=== PATIENT | female | born 1970 | race Caucasian/White ===

== ENCOUNTER 2017-04-10 18:16 | Emergency (ER) | payer SELFPAY ==
[2017-04-10 18:36] VITALS: BP 135/90
--- NOTE | 2017-04-10 18:50 | Diagnostic Imaging Report ---
[facility] [address] [facility].[address] [address] Report Submission Date: April 10, 2017 6:49:06 PM CDT Patient Study Name: MYKEL MALLORY Date: April 10, 2017 6:29:21 PM CDT Modality Type: CR Gender: F Description: ABDOMEN : 68 Institution: [facility] Physician: CHICO LEAVITT (SOFTWARE DEVELOPMENT SPECIALIST) - ER Abdominal series History: Left lower quadrant pain and nausea Findings: Upright and supine abdominal radiographs reveal obesity, cholecystectomy, and normal bowel gas pattern without obstruction, free air, or abnormal calcifications. Gastric rugal fold thickening is noted. Impression: 1. Gastric rugal fold thickening suggests gastritis. 2. Normal bowel gas pattern. 3. Cholecystectomy. Electronically signed on April 10, 2017 6:49:06 PM CDT by: Austen DORMAN
== END 2017-04-10 18:50 | disposition left against medical advice (07) ==
LOC: ED 18:16
DX: R10.9 Unspecified abdominal pain (principal)
CPT/HCPCS: 74020; 99281

== ENCOUNTER 2019-04-07 16:59 | Emergency (ER) | payer OTHER ==
--- NOTE | 2019-04-07 17:34 | ED Physician Documentation ---
Abdominal Pain - HISTORIAN Historian: patient - HPI Stated Complaint: abd pain Chief Complaint: Abdominal Pain Additonal Information: Patient presents to ED with a 1 day history of rectal bleeding and left lower abdominal pain. Patient states she has had this in the past and sees a colorectal surgeon (Dr. Cuco Mcclelland) in for it. Last year she had a colonscopy showing rectal ulcer and proctitis. She was started on antibiotics and steroids with resolution of the problem. Today she woke up with the same symptoms. Denies fever. Patient has a history of iron deficient anemia and get IV iron infusions. Patient states she has an appointment with her colorectal surgeon next week. Patient reports last IV iron infusion was over a year ago. Last blood transfusion was last month for a hemoglobin of 7.2 Onset: hours (12) Duration: gradual Timing: still present Context: denies: out of country travel Severity: mild Quality: aching, cramping, sharp, stabbing Associated Symptoms: nausea, bloody stools. denies: fever Exacerbated by: nothing - ROS CONST: no problems GI/: bloody stools CVS/RESP: none EYES/ENT: none MS/SKIN/LYMPH: none NEURO/PSYCH: none - SOCIAL HX Smoking History: non-smoker Alcohol Use: none Drug Use: none - FAMILY HX Family History: none - PAST HX Past History: none Ischemic Bowel Risk Factors: none Surgeries/Procedures: appendectomy, cholecystectomy, hysterectomy Home Medications: Ambulatory Orders Medication Instructions Recorded Alprazolam [Alprazolam ER] 2 mg PO D 12/30/14 Duloxetine HCl [Cymbalta] 120 mg PO HS 12/30/14 Lansoprazole [Prevacid] 30 mg PO BID 12/30/14 Simvastatin [Zocor] 40 mg PO D 12/30/14 Dicyclomine HCl [Bentyl] 40 mg PO QID 04/10/17 Mirtazapine [Remeron] 15 mg PO HS 04/10/17 Ciprofloxacin HCl [Cipro] 500 mg PO BID #28 tablet 04/07/19 Hydrocodone/Acetaminophen [[place] 1 each PO Q6 PRN #12 tablet 04/07/19 5-325 Tablet] Methylprednisolone [Medrol] 4 mg PO DIRECTED #1 tab.ds.pk 04/07/19 Tramadol HCl [Ultram] 50 mg PO Q4 PRN 04/07/19 metroNIDAZOLE [Flagyl] 500 mg PO Q8 #42 tablet 04/07/19 Allergies/Adverse Reactions: Allergies Allergy/AdvReac Type Severity Reaction Status Date / Time cephalexin Allergy Verified 04/07/19 17:14 ketorolac tromethamine Allergy Verified 04/07/19 17:14 [From Toradol] prochlorperazine Allergy Verified 04/07/19 17:14 [From Compazine] - VITAL SIGNS Vital Signs: Vital Signs Temp Pulse Resp BP Pulse Ox 97.9 F 96 H 18 147/82 96 04/07/19 17:10 04/07/19 21:41 04/07/19 21:41 04/07/19 21:41 04/07/19 21:41 - REVIEWED ASSESSMENTS Nursing Assessment Reviewed: Yes Vitals Reviewed: Yes ED Results Lab/Radiology - Lab Results Lab Results: Lab Results 04/07/19 04/07/19 04/07/19 19:00 18:00 18:00 WBC 8.60 K/ul K/ul (4.00-12.00) RBC 4.12 M/ul M/ul (3.90-5.20) Hgb 8.9 g/dL L g/dL (11.5-16.0) Hct 28.0 % L % (34.5-46.5) MCV 68.0 fl L fl (80.0-100.0) MCH 21.6 pg L pg (28.0-34.0) MCHC 31.7 g/dL g/dL (30.0-36.0) RDW 19.1 % H % (11.3-14.3) Plt Count 318 K/mm3 K/mm3 (130-400) Seg Neutrophils % 95 % H % (39-79) Lymphocytes % 4 % L % (16-50) Monocytes % 1 % % (0-11) Poikilocytosis 1+ H (NEGATIVE) Anisocytosis 2+ H (NEGATIVE) Microcytosis 2+ H (NEGATIVE) Tear Drop Cells 1+ H (NEGATIVE) Ovalocytes 1+ H (NEGATIVE) RBC Morph Comment Abnormal H (NORMAL) Sodium 136 mmol/L L mmol/L (137-145) Potassium 3.8 mmol/L mmol/L (3.5-5.1) Chloride 103 mmol/L mmol/L (98-107) Carbon Dioxide 19 mmol/L L mmol/L (22-30) BUN 8 mg/dL mg/dL (7-17) Creatinine 0.70 mg/dL mg/dL (0.52-1.04) Estimated Creat Clear 212 Est GFR ( Amer) > 60 (60 - ) Est GFR (Non-Af Amer) > 60 (60 - ) Glucose 347 mg/dL H mg/dL (74-106) Calcium 8.9 mg/dL mg/dL (8.4-10.2) Total Bilirubin 0.2 mg/dL mg/dL (0.2-1.3) AST 30 U/L U/L (15-46) ALT 35 U/L U/L (0-35) Alkaline Phosphatase 126 U/L U/L (38-126) Total Protein 7.4 g/dL g/dL (6.3-8.2) Albumin 4.1 g/dL g/dL (3.5-5.0) Urine Color Unk (YELLOW) Urine Appearance Unk (CLEAR) Urine pH 5.0 (5.0 - 8.0) Ur Specific [place] 1.010 (1.010-1.030) Urine Protein 1+ mg/dL H mg/dL (NEGATIVE) Urine Ketones Trace mg/dL H mg/dL (NEGATIVE) Urine Occult Blood 1+ H (NEGATIVE) Urine Nitrite Negative (NEGATIVE) Urine Bilirubin Negative (NEGATIVE) Urine Urobilinogen 0.2 Eu Eu (0.2-1.0) Ur Leukocyte Esterase Negative (NEGATIVE) Urine Glucose 2+ mg/dL H mg/dL (NEGATIVE) - Radiology Radiology Impressions: Report Submission Date: April 07, 2019 7:56:26 PM CDT Patient Study Name: MYKEL MALLORY Date: April 07, 2019 6:52:36 PM CDT Modality Type: CT\SR Gender: F Description: CT ABD PELVIS W/ CON : 68 Institution: [facility] Physician: ARLINE SHERWOOD CT abdomen and pelvis with contrast History: Left lower quadrant pain and rectal pain. Technique: Transaxial computed tomographic images of the abdomen pelvis were obtained with contrast according to standard protocol. Findings: Lung bases are clear. The heart size is normal. The liver demonstrates mild hepatic steatosis. The gallbladder is absent. The pancreas spleen adrenals and kidneys are normal. There is mild thickening of the distal portion of the rectum with mild mesiorectal stranding suggesting proctitis. No evidence of perirectal fluid collection to suggest abscess. The appendix is absent. There is also mild thickening of portions of the descending colon with adjacent mild stranding. There is atherosclerosis of the aorta. There is no adenopathy present. The bladder is normal. No significant free fluid is present. There is mild degenerative change in the lumbar spine. Impression: 1. Diffuse thickening of the distal portion of the rectum and portions of the descending colon with adjacent stranding, most consistent with proctitis/colitis. 2. No perirectal fluid collection to suggest abscess. Electronically signed on April 07, 2019 7:56:26 PM CDT by: Wilber Milner - Orders Orders: ED Orders Category Date Time Status Place IV Lock 1T Care 04/07/19 17:[address] ABD & PELVIS W/ CON Stat Exams 04/07/19 Completed CBC/PLATELET/DIFF Routine Lab 04/07/19 18:00 Completed CMP Routine Lab 04/07/19 18:00 Completed RBC/PLATELET MORPHOLOGY Routine Lab 04/07/19 18:00 Completed UA MACRO DIP ONLY Routine Lab 04/07/19 19:00 Completed 0.9 % Sodium Chloride [Normal Saline] 1,000 ml Med 04/07/19 17:38 Discontinued IV Q1H Ciprofloxacin in 5 % Dextrose [Cipro] Med 04/07/19 20:04 Discontinued 400 mg IV NOW ONE Metoprolol Tartrate [Lopressor] Med 04/07/19 18:12 Discontinued 5 mg IV NOW ONE fentaNYL CITRATE/PF [Sublimaze] Med 04/07/19 20:06 Discontinued 50 mcg IV NOW ONE fentaNYL CITRATE/PF [Sublimaze] Med 04/07/19 20:51 Discontinued 50 mcg IV NOW ONE metroNIDAZOLE [Flagyl] Med 04/07/19 20:04 Discontinued 500 mg PO NOW ONE oxyCODONE HCL/ACETAMINOPHEN [Percocet 5-325] Med 04/07/19 19:45 Discontinued 1 each PO NOW ONE oxyCODONE HCL/ACETAMINOPHEN [Percocet 5-325] Med 04/07/19 20:50 Discontinued 1 each PO NOW ONE Abdominal Pain Physical Exam - Physical Exam General Appearance: no acute distress, alert EENT: ALVERTO NECK: supple RESPIRATORY: no resp distress, breath sounds normal CVS: tachycardia ABDOMEN: soft, tenderness (LLQ) BACK: normal inspection, no CVA tenderness SKIN: warm/dry EXTREMITIES: non-tender NEURO: oriented X3, motor nml, mood/affect nml Vital Signs: Vital Signs Temp Pulse Resp BP Pulse Ox 97.9 F 96 H 18 147/82 96 04/07/19 17:10 04/07/19 21:41 04/07/19 21:41 04/07/19 21:41 04/07/19 21:41 Discharge Clincal Impression: Proctitis, Colitis Prescriptions: Ciprofloxacin HCl [Cipro] 500 mg PO BID #28 tablet Hydrocodone/Acetaminophen [[place] 5-325 Tablet] 1 each PO Q6 PRN #12 tablet PRN Reason: Abdominal Pain Methylprednisolone [Medrol] 4 mg PO DIRECTED #1 tab.ds.pk metroNIDAZOLE [Flagyl] 500 mg PO Q8 #42 tablet Referrals: Primary Doctor,No [Primary Care Provider] - 2 Days Additional Instructions: 1. Take antibiotics until gone 2. Take steroids and pain medication as directed 3. Follow up with Dr. Cuco Mcclelland next week as already scheduled 4. Drink plenty of fluids to maintain proper hydration, void caffeine and alcohol 5. Return to ER for new or worsening symptoms Condition: Stable Disposition: 01 HOME, SELF-CARE Decision to Admit: NO Date of Decison to Admit: 04/07/19 Decision Time: 21:45
[2019-04-07] MEDS: 0.9 % SODIUM CHLORIDE 1,000 ML IV ONE (18:26)
[2019-04-07] MEDS: METOPROLOL TARTRATE 5 MG/5 ML VIAL IV ONE (18:30)
[2019-04-07 18:33] LABS: eGFR (Non-African) > 60
[2019-04-07 18:36] LABS: MEAN CORPUSCULAR HEMOGLOBIN 21.6 pg (28.0-34.0)
[2019-04-07 18:39] LABS: ANISOCYTOSIS 2+ (NEGATIVE); MONOCYTES % 1 % (0-11); OVALOCYTES 1+ (NEGATIVE); SEGMENTED NEUTROPHILS % 95 % (39-79); TEAR DROP CELLS 1+ (NEGATIVE)
[2019-04-07] MEDS ORDERED: oxyCODONE/ACETAMINOPHEN 5/325 TABLET PO ONE (19:45)
[2019-04-07] MEDS: fentaNYL CITRATE/PF 100 MCG/2 ML INJ. IV ONE ×2 (20:45→21:00)
[2019-04-07] MEDS: CIPROFLOXACIN IN 5 % DEXTROSE 400 MG/200 ML BAG IV ONE (20:45)
[2019-04-07] MEDS: metroNIDAZOLE 500 MG TABLET PO ONE (20:45)
[2019-04-07] MEDS: oxyCODONE/ACETAMINOPHEN 5/325 TABLET PO ONE (21:40)
[2019-04-07 21:43] VITALS: BP 147/82
[2019-04-07 21:43] LABS: OCCULT BLOOD,URINE 1+ (NEGATIVE); UROBILINOGEN URINE 0.2 Eu (0.2-1.0)
--- NOTE | 2019-04-07 22:01 | Diagnostic Imaging Report ---
ARLINE SHERWOOD [facility] [address] [facility] [address] [address] Report Submission Date: April 07, 2019 7:56:26 PM CDT Patient Study Name: MYKEL MALLORY Date: April 07, 2019 6:52:36 PM CDT Modality Type: CT\SR Gender: F Description: CT ABD PELVIS W/ CON : 68 Institution: [facility] Physician: ARLINE SHERWOOD CT abdomen and pelvis with contrast History: Left lower quadrant pain and rectal pain. Technique: Transaxial computed tomographic images of the abdomen pelvis were obtained with contrast according to standard protocol. Findings: Lung bases are clear. The heart size is normal. The liver demonstrates mild hepatic steatosis. The gallbladder is absent. The pancreas spleen adrenals and kidneys are normal. There is mild thickening of the distal portion of the rectum with mild mesiorectal stranding suggesting proctitis. No evidence of perirectal fluid collection to suggest abscess. The appendix is absent. There is also mild thickening of portions of the descending colon with adjacent mild stranding. There is atherosclerosis of the aorta. There is no adenopathy present. The bladder is normal. No significant free fluid is present. There is mild degenerative change in the lumbar spine. Impression: 1. Diffuse thickening of the distal portion of the rectum and portions of the descending colon with adjacent stranding, most consistent with proctitis/colitis. 2. No perirectal fluid collection to suggest abscess. Electronically signed on April 07, 2019 7:56:26 PM CDT by: Wilber DORMAN
== END 2019-04-07 21:25 | disposition home or self-care (01) ==
LOC: ED 16:59
DX: K62.89 Other specified diseases of anus and rectum (principal); K52.9 Noninfective gastroenteritis and colitis, unspecified
CPT/HCPCS: 36415; 74177; 80053; 81002; 85025; 96361; 96372; 96374; 96375; 96376; 99284; 99285; J0744; J3010; J3490; A9270-GY; J7030; Q9967; S1016

== ENCOUNTER 2019-10-07 00:39 | Emergency (ER) | payer OTHER ==
[2019-10-07 01:09] VITALS: BP 141/98
--- NOTE | 2019-10-07 01:36 | ED Physician Documentation ---
General Adult - HISTORIAN Historian: patient - HPI Stated Complaint: LLQ PAIN Chief Complaint: General Adult Severity: moderate Further Comments: yes (Pt is a 49 yo female with LLQ abd pain that began earlier today. Pt has had some loose bm's with some blood seen. Pt has hx rectal ulcer and proctitis and has been seen by colorectal surgeon, Dr. Cuco Mcclelland in . Pt was seen here in March 2019 and was tx'd with abx and steroids. Pt had CT at that time. Pt says she was told she had diverticulosis but this was not reported on the March 2019 CT scan. Pt has had some nausea but no vomiting. No fever. Pain and sx are similar to previous episodes proctitis/colitis.) - ROS CONST: no problems EYES/ENT: none CVS/RESP: none GI/: abdominal pain, nausea, other (some blood seen with bm's) MS/SKIN/LYMPH: none - PAST HX Past History: other (Anemia, anxiety/depression, GERD, HLD, HTN) Surgeries/Procedures: cholecystectomy, hysterectomy, other (appendectomy, umbilical hernia repair) Allergies/Adverse Reactions: Allergies Allergy/AdvReac Type Severity Reaction Status Date / Time cephalexin Allergy Verified 10/07/19 01:10 ketorolac tromethamine Allergy Verified 10/07/19 01:10 [From Toradol] prochlorperazine Allergy Verified 10/07/19 01:10 [From Compazine] Home Medications: Ambulatory Orders Medication Instructions Recorded Alprazolam [Alprazolam ER] 2 mg PO D 12/30/14 Duloxetine HCl [Cymbalta] 120 mg PO HS 12/30/14 Lansoprazole [Prevacid] 30 mg PO BID 12/30/14 Simvastatin [Zocor] 40 mg PO D 12/30/14 Mirtazapine [Remeron] 15 mg PO HS 04/10/17 - SOCIAL HX Smoking History: non-smoker - FAMILY HX Family History: No - VITAL SIGNS Vital Signs: Vital Signs Temp Pulse Resp BP Pulse Ox 98.7 F 99 H 18 141/98 96 10/07/19 00:41 10/07/19 00:41 10/07/19 00:41 10/07/19 00:41 10/07/19 00:41 - REVIEWED ASSESSMENTS Nursing Assessment Reviewed: Yes Vitals Reviewed: Yes Progress - Progress Progress: One view abdomen Clinical history: Abdominal pain and bloody stools. Findings: Examination of the abdomen in single AP view demonstrates postoperative changes with surgical clips from prior cholecystectomy. There is increased stool in the proximal colon. There is no evidence of obstruction. Visualized visceral silhouettes within normal limits. Impression: 1. Postoperative abdomen. 2. Increased stool in the proximal colon. Sx c/w previous episodes colitis/proctitis. D/w pt presumptive tx vs. another CT scan. Will tx for colitis. Pt will return to ER if sx unimproved or worse or she has new concerns. Glucose NS 1 L IVF Cipro 400 mg IV in ER Metronidazole 500 mg po in ER Fentanyl 50 mcg IV Zofran 4 mg IM Glucose 302 --> 191 after IV fluid Pt will check glucose levels with her Dad's glucometer and f/u pcp. d/c instructions: Rx Ciprofloxacin 500 mg. Take one every 12 hours for 10 days. Rx Metronidazole 500 mg. Take one every 8 hours for 10 days. Rx [place] (5/325). Take one or two every 4 to 6 hours as needed for moderate to severe pain. Rx Zofran 4 mg ODT. Take one every 8 hours as needed for nausea/vomiting. Check your sugar level in the morning and at meal time and keep a record and follow up with your primary provider next week. Return to ER if symptoms are unimproved or if you develop new symptoms or concerns. General Adult Physical Exam - PHYSICAL EXAM GENERAL APPEARANCE: moderate distress EENT: pharynx normal NECK: normal inspection, supple RESPIRATORY: no resp distress, chest non-tender, breath sounds normal CVS: reg rate & rhythm, heart sounds normal ABDOMEN: soft, tenderness (LLQ), decreased BS. No: rebound, distended, guarding BACK: normal inspection, no CVA tenderness SKIN: warm/dry, normal color EXTREMITIES: non-tender, normal range of motion NEURO: oriented X3, motor nml, sensation nml Discharge Clincal Impression: Colitis Condition: Stable Disposition: 01 HOME, SELF-CARE Decision to Admit: NO Decision Time: 04:40
[2019-10-07] MEDS: ONDANSETRON HCL/PF 4 MG/ 2ML VIAL IM ONE (02:02)
--- NOTE | 2019-10-07 02:41 | Diagnostic Imaging Report ---
PATIENT MR#: [id number] PATIENT PATIENT NAME: MYKEL MALLORY DATE OF : 1970 REFERRING PHYSICIAN: Karri English EXAM DATE: 10/07/2019 ACCESSION NUMBER: [id number] EXAM DESCRIPTION: ABDOMEN 1VIEW One view abdomen Clinical history: Abdominal pain and bloody stools. Findings: Examination of the abdomen in single AP view demonstrates postoperative changes with surgi alba clips from prior cholecystectomy. There is increased stool in the proximal colon. There is no evidence of obst ruction. Visualized visceral silhouettes within normal limits. Impression: 1. Postoperative abdomen. 2. Increased stool in the proximal colon. Read by: Dr. Edison Peterson Transcribed by: Transcribed Date: Electronically signed by: Dr. Edison Peterson Date signed: 10/07/2019 2:41:13 AM
[2019-10-07] MEDS: fentaNYL CITRATE/PF 100 MCG/2 ML INJ. IV ONE (03:15)
[2019-10-07] MEDS: 0.9 % SODIUM CHLORIDE 1,000 ML IV ONE (03:15)
[2019-10-07] MEDS: fentaNYL CITRATE/PF 100 MCG/2 ML INJ. ONE (03:20)
[2019-10-07] MEDS: metroNIDAZOLE 500 MG TABLET PO ONE (03:28)
[2019-10-07] MEDS: CIPROFLOXACIN IN 5 % DEXTROSE 400 MG/200 ML BAG IV ONE (03:29)
[2019-10-07 07:46] LABS: BASOPHILS % 0.2 % (0.0-1.5); NEUTROPHILS # 6.6 # k/uL (1.4-7.7)
[2019-10-07 07:47] LABS: eGFR (Non-African) > 60
[2019-10-07 13:18] LABS: APPEARANCE,URINE CLEAR (CLEAR); COLOR,URINE YELLOW (YELLOW)
[2019-10-07 13:19] LABS: OCCULT BLOOD,URINE NEGATIVE (NEGATIVE); PH URINE 5.5 (5.0 - 8.0); UROBILINOGEN URINE 0.2 Eu (0.2-1.0)
== END 2019-10-07 04:26 | disposition home or self-care (01) ==
LOC: ED 00:39
DX: K52.9 Noninfective gastroenteritis and colitis, unspecified (principal)
CPT/HCPCS: 74018; 80053; 81002; 83690; 85025; 96361; 96372; 96374; 96375; 99284; J0744; J2405; J3010; J7030; S1016